=== PATIENT | female | born 2000 | race Caucasian/White ===

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

== ENCOUNTER → 2021-10-02 | Outpatient (CLI) | payer BC, OTHER ==
[~2021-10-02] MED LIST changes: +HYOS0.1283 SL; +ONDA4TAB8 SL; -TRAM50TA2 PO; +TRM50T PO
--- NOTE | 2021-10-02 10:05 | Diagnostic Imaging Report ---
CLINICAL INDICATION: Patient with acute left-sided chest pain after starting new medication a couple months ago. EXAM: Chest x-ray, PA and lateral views. COMPARISON: None. FINDINGS: Lungs/pleura: Lungs are clear. There is no pneumothorax. There is no pleural effusion. Mediastinum: Unremarkable. Pulmonary vasculature: Unremarkable. Heart: Unremarkable. Bones/extrathoracic soft tissue: Unremarkable. IMPRESSION: Unremarkable chest x-ray exam with no radiographic evidence of acute cardiopulmonary process. Dictated by: Dictated on workstation # [id number]
== END ==
LOC: RAD 09:21
PROVIDERS: ATTEND Nurse Practitioner Family
DX: R07.9 Chest pain, unspecified (principal)
CPT/HCPCS: 71046